=== PATIENT | female | born 1985 | race Caucasian/White ===

== ENCOUNTER 2017-12-27 14:08 | Emergency (ER) | payer OTHER, SELFPAY | END 2017-12-27 14:28 | disposition home or self-care (01) | LOC: BURERS 14:08 | DX: E04.1 Nontoxic single thyroid nodule (principal); F17.210 Nicotine dependence, cigarettes, uncomplicated | CPT/HCPCS: 99282 ==

== ENCOUNTER 2017-12-29 15:13 | Outpatient (CLI) | payer OTHER ==
--- NOTE | 2017-12-29 17:35 | ULT ---
THYROID ULTRASOUND: 12/29/17 Ultrasonography of the thyroid gland was performed with no prior scans available for comparison. The clinical history reads thyroid nodule. Both lobes are enlarged. The right lobe measures 5.1 x 1.6 x 1.8 cm and the left lobe measures 4.9 x 1.6 x 1.4 cm. There are two solid nodules in the right lobe. The larger is in the upper pole, has fairly discrete b orders, and is hypoechoic. It is 1.6 cm in diameter. A smaller nodule is seen in the middle third of the right lobe and is less discrete, measuring about 0.5 cm in size. There is a solid nodule in the left lobe near the junction of the middle and lower thirds. It is 1.6 cm in diameter. Its margins are much less well defined than the nodule on the right which does give m e some cause for concern. No surrounding adenopathy was noted. IMPRESSION: 1. Mildly enlarged thyroid gland. 2. Two solid nodules in the right lobe, largest 1.6 cm in size and reasonably well defined. The smaller one is subcentimeter, middle third, and poorly defined. 3. 1.6 cm ill-defined solid nodule at the junction of the middle and lower third of lobe on the left side. COMMENT: This may merely be a case of a multinodular goiter. I am rather concerned, however, particularly rega rding the left lobe nodule, as its margins are poorly defined. Because of this, I feel strongly that the patient should be referred to an ENT doctor to decide whether a biopsy would be appropriate or no t. Code T POS: HOME
== END 2017-12-29 15:14 | disposition home or self-care (01) ==
LOC: BURULT 15:13
PROVIDERS: ATTEND Family Medicine
DX: E04.2 Nontoxic multinodular goiter (principal)
CPT/HCPCS: 76536